=== PATIENT | female | born 1935 | race Caucasian/White ===

== ENCOUNTER 2020-10-22 17:11 | Observation (INO) ==
[2020-10-22 17:41] LABS: Hematocrit 38.6 % (37.0-47.0); Hemoglobin 12.6 gm/dL (12.5-16.0); Mean Cell Volume 91.5 fl (78-100); Mean Corpuscular Hemoglobin 29.9 pg (27-31); Mean Corpuscular Hgb Conc 32.6 g/dl (32-36); Mean Platelet Volume 10.3 fl (8-12.5); Neutrophil # 2.8 K/mm3 (1.3-6.0); Neutrophil % 49.5 % (42-75.0); Platelet Count 179 K/mm3 (150-450); Red Blood Count 4.22 M/mm3 (4.2-5.4); Red Cell Distribution Width 12.4 % (11.5-14.0); White Blood Count 5.6 K/mm3 (4.0-10.5)
--- NOTE | 2020-10-22 17:42 | ERNOTE ---
Chest Pain/Cardiac HPI Date of Service: 10/22/20 Chief Complaint: Chest Pain Time Seen by Provider: 10/22/20 17:23 Source: patient Exam Limitations: no limitations Immunizations: IMMUNIZATION HX Immunizations Up to Date Yes History of Influenza Vaccine No Hx Pneumococcal Vaccination No Allergies/Adverse Reactions: Allergies Sulfa (Sulfonamide Antibiotics) Adverse Reaction (Unknown, Verified 10/22/20 17:26) Other Home Medications: HOME MEDICATIONS Aspirin [Aspirin Chewable] 81 mg PO DAILY 10/22/20 [Last Taken Unknown] Cholecalciferol (Vitamin D3) [Vitamin D3] 50,000 unit PO 2XW 10/22/20 [Last Taken Unknown] Enalapril Maleate [Vasotec] 20 mg PO DAILY 10/22/20 [Last Taken Unknown] Meloxicam 7.5 mg PO DAILY 10/22/20 [Last Taken Unknown] Metoprolol Tartrate [Lopressor] 12.5 mg PO BID 10/22/20 [Last Taken Unknown] Simvastatin [Zocor] 40 mg PO HS 10/22/20 [Last Taken Unknown] tiZANidine HCL [Tizanidine HCl] 2 mg PO Q4H PRN 10/22/20 [Last Taken Unknown] tiZANidine HCL [Tizanidine HCl] 2 mg PO Q4H PRN 10/23/20 [Last Taken Unknown] Pain Score #1 Pain Score: 0 Narrative: The patient is a 84 year old female who presents for sternal chest pain which has been present since 0200. There are no associated symptoms. The patient denies pain during exam. There are no alleviating factors. There are no aggravating factors. Previous treatments have included: none. The past medical history includes: HTN and colon cancer. The social history is negative. The patient has had no known ill contacts. Patient states sternal chest pain awoke her from sleep at 0200 and it finally resolved to allow her to sleep around 0400. Patient states she has had recurrent symptoms intermittently throughout the day. Review of Systems - Review of Systems Constitutional: Present: no symptoms reported. Absent: recent illness, fever, chills, fatigue EYE: Present: no symptoms reported ENT: Present: no symptoms reported. Absent: ear pain, nasal drainage, sore throat Respiratory: Present: no symptoms reported. Absent: shortness of breath, cough Cardiology: Present: chest pain. Absent: edema Gastrointestinal/Abdominal: Present: no symptoms reported. Absent: nausea, vomiting, diarrhea, abdominal pain Genitourinary: Present: no symptoms reported. Absent: dysuria Musculoskeletal: Present: no symptoms reported Skin: Present: no symptoms reported. Absent: rash Neurological: Present: no symptoms reported. Absent: headache All Other Systems: All systems neg except as marked Medical History (Last Reviewed 10/22/20 @ 17:29 by BENNY Monk) History of colon cancer Hypercholesteremia Hypertension Murmur, cardiac Surgical History: Surgical History (Last Reviewed 10/22/20 @ 17:29 by BENNY Monk) History of partial surgical removal of colon colon CA Hx of cholecystectomy Hx of hysterectomy Hx of unilateral salpingectomy Family History: Family History (Last Reviewed 10/22/20 @ 17:29 by BENNY Monk) Mother No pertinent past medical history Father Hypertension Cancer Social History: (Last Reviewed 10/22/20 @ 17:29 by BENNY Monk) Social History: household members: family caregivers: other Tobacco: Smoking Status: Never smoker Alcohol: alcohol intake: never Substance Use: substance use type: does not use Physical Exam - Physical Exam General Appearance: Present: wd/wn, alert, no apparent distress Head Exam: Present: normal inspection, no evidence of injury Eye Exam: Normal inspection: bilateral Neck: Present: normal inspection Respiratory: Present: no respiratory distress, no accessory muscle use, decreased breath sounds Cardiovascular/Chest: Present: regular rate, rhythm, systolic murmur Extremity Exam: Present: extremity edema - 2+ pitting edema bilateral lower extremities. Absent: calf tenderness Neurological Exam: Present: alert, oriented, normal mood/affect, no motor/sensory deficits Skin Exam: Present: normal color, warm/dry Progress - Date and Time Seen: Date and Time: 10/22/20 20:35 Patient having recurrent chest pain, will repeat EKG. 10/22/20 21:41 Case was reviewed with and will admit for observation due to symptomatic arrhythmia. Review of case with and states will place orders for am testing as she feels necessary. - Results and Orders Patient's Lab Results:: I have reviewed the patient's lab results. - Vital Signs Patient's Vital Signs:: I have reviewed the patient's vital signs. Vital Signs: Vital Signs 10/22/20 17:17 Temperature 36.5 C Pulse Rate 80 Respiratory Rate 12 Blood Pressure 137/83 O2 Sat by Pulse Oximetry 96 - EKG EKG #1 EKG: NSR, nonspecific ST T wave changes EKG read: Reviewed by me EKG #2 EKG: NSR, other - occasional PAC in near bigeminal pattern EKG read: Reviewed by me - X-Ray X-Ray #1 X-Ray: chest Interpretation: Reviewed by me X-ray Comments: IMPRESSION: 1. HYPERINFLATION. 2. NO ACUTE CARDIOPULMONARY PROCESS. Electronically signed by Catracho Dempsey M.D.. - CT/Ultrasound CT/Ultrasound Narrative: Real radiology preliminary report CT angio chest with IV contrast Impression: No acute thoracic pathology Negative for central pulmonary embolism - Progress/Reassessment Chief Complaint: Chest Pain Departure Clinical Impression: COVID-19 Chest pain Qualifiers: Chest pain type: unspecified Qualified Code(s): R07.9 - Chest pain, unspecified - Departure Disposition: Short Term Hospital Inpatient Condition: Stable
[2020-10-22 17:55] LABS: Prothrombin Time (Patient) 10.4 Seconds (9.1-10.7)
[2020-10-22 18:04] LABS: ALT 11 U/L (19-67); AST 16 U/L (0-48); Albumin * 3.8 gm/dl (3.4-5.0); Alkaline Phosphatase * 111 U/L (50-170); Anion Gap 7.8 mmol/L (6.8-13.8); BNP * 559 pg/mL (5-550); Bilirubin, Total 0.4 mg/dL (0.0-1.1); Blood Urea Nitrogen 16 mg/dL (3-23); Ca. Corrected For Albumin 8.9 mg/dL (8.4-10.2); Calcium * 9.1 mg/dL (7.9-10.9); Carbon Dioxide 29.9 mmol/L (24-32.6); Chloride 107 mmol/L (97-106); Glucose * 90 mg/dL (70-110); INR 1.05 INR (0.92-1.08); Potassium 3.7 mmol/L (3.4-4.6); Sodium 141 mmol/L (132-142); Total Protein 7.1 gm/dL (6.2-8.2); Troponin I Less than 0.017 ng/mL (0.00-0.10)
[2020-10-22 21:22] LABS: Troponin I Less than 0.017 ng/mL (0.00-0.10)
[2020-10-23] MEDS ORDERED: FAMOTIDINE 20 MG in DEXTROSE 5 % IN WATER 100 ML IV ONE ×2 (12:06)
[2020-10-23] MEDS ORDERED: tiZANidine HCL 4 MG TABLET PO PRN (12:14)
[2020-10-23] MEDS ORDERED: ASPIRIN 81 MG TAB.CHEW PO SCH (12:15)
[2020-10-23] MEDS ORDERED: MELOXICAM 7.5 MG TABLET PO SCH (12:15)
[2020-10-23] MEDS ORDERED: ENALAPRIL MALEATE 20 MG TABLET PO SCH (12:15)
[2020-10-23] MEDS ORDERED: PANTOPRAZOLE SODIUM 20 MG TABLET.DR PO ONE (12:15)
[2020-10-23] MEDS ORDERED: METOPROLOL TARTRATE 25 MG TABLET PO SCH (12:15)
[2020-10-23] MEDS ORDERED: CHOLECALCIFEROL 50000 UNIT PO SCH (12:15)
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
[2020-10-23 13:47] VITALS: BP 152/60
[2020-10-23] MEDS ORDERED: SIMVASTATIN 40 MG TABLET PO SCH (21:00)
== END 2020-10-23 14:32 | disposition home or self-care (01) ==
LOC: ER 17:11 → SCU 17:11
PROVIDERS: ADMIT Family Medicine; ATTEND Family Medicine